=== PATIENT | male | born 1955 | race Caucasian/White ===

== ENCOUNTER 2018-11-20 11:59 | Observation (INO) | payer MEDICARE, OTHER, SELFPAY ==
[2018-11-06 08:52] VITALS: BMI 32.8
[2018-11-19] VITALS (14 sets, daily range): BP systolic 101–164; BP diastolic 64–102; PULSE 84–103; RESP 6–17; TEMP 36–37.2; O2SAT 93–98; BMI 32.8
[2018-11-19] MEDS: LACTATED RINGERS 1,000 ML 42 ML IV (10:07)
--- NOTE | 2018-11-19 10:49 | PM.PREOP ---
Pre-operative Note Interval Note History & Physical reviewed/Exam performed by Physician: Yes Changes to H&P: No
--- NOTE | 2018-11-19 10:50 | P.OP_ITS ---
Operative Date/Time/Diagnoses Date of procedure: 11/19/18 Time of procedure: 15:15 Pre-op diagnosis: Left knee osteoarthritis Post-op diagnosis: same Procedure & Clinicians Procedure: Left total knee replacement Same procedure as scheduled: Yes Indications: The patient has had progressively worsening left knee pain with radiographic changes consistent with arthritis. Non-operative management has failed and the patient has requested total knee replacement. The risks, benefits and alternatives to surgery were discussed with the patient prior to proceeding. Risks discussed included, but were not limited to, failure to relieve pain, stiffness, infection, nerve damage, deep venous thrombosis, pulmonary embolism, stroke, coma, heart attack, permanent paralysis and , as well as the potential need for eventual revision of the prosthetic. Surgeon: Seb Tolentino Search Strategist: Lynn Toussaint Click Yes if Unassisted: No Anesthesia Type: General, Spinal and Local Operative Notes Findings: Severe tricompartmental osteoarthritis Closure Type: primary Specimen(s): none sent Prosthetic devices, grafts, tissues, transplants, or devices: Implants used in this procedure were manufactured by the [employer] (formerly [employer]) and included the BCS II Journey total knee replacement with a size 5 left Oxinium femoral component, a size 6 left non porous tibial base plate, a 9 mm cross- linked polyethylene tibial insert, and a 35 mm oval Tamiko II patellar component. Applied: implant(s) Estimated Blood Loss (mL): 50 Blood products transfused: none Tourniquet time (min): 58 Procedure in detail: The patient was seen in the pre-operative area, where the left knee was identified as the operative site and this was marked with my init ials. The patient received pre-operative antibiotics, and was taken to the operating room and placed on the operative table in the supine position. After satisfactory anesthesia, a multimedia manager out? was performed. The left leg was encircled with a tourniquet about the proximal thigh, and the leg was prepared from the toes to the tourniquet with ChloroPrep in the usual fashion and draped through sterile drapes. The leg was elevated and exsanguinated with Eschmark bandage and the tourniquet inflated to 250 mmHg pressure. The knee was approached through an approximately 18 cm incision centered over the patella and carried into the knee through a medial parapatellar arthrotomy. The anterior osteophytes and soft tissues were removed. The rotational landmarks of Dupage's line and the transepicondylar axis were marked on the femur with electrocautery, and intramedullary guide holes for the femur and tibia were created. The distal femoral cut was made in 6 degrees of valgus using the intramedullary guide at the +2 cut setting due to the patient's flexion contracture. The proximal tibial cut was then made using the intramedullary guide, taking 9 mm of bone off the less involved side. The extension gap was checked and the rotation of the femoral component confirmed with the gap balancing blocks. The anterior, posterior and chamfer cuts were then made. Unfortunately a small anterior cortical notch occurred. The posterior osteophytes and soft tissues were then removed. The posterior capsule was injected with part of a mixture of 60 ml 0.25% Marcaine mixed with 20 ml Exparel and 4 mg of morphine for post-operative pain control. The remainder of this mixture was injected into the capsule and subcutaneous tissues during cement curing. The tibia was prepared with the rotation set by an extra medullary guide. Trial tibial and femoral components were then placed and the intercondylar notch cut through the femoral trial. Range of motion was 0-135 degrees, with good stability throughout the range. The patella was then cut to accommodate the patellar prosthetic. There was no need for a lateral release. The trials were then removed, and the femoral hole plugged with a bone plug. The bone was prepared with pulsatile lavage, and dried with a sponge. Cement was applied and the final prosthetics placed. Excess cement was removed during and after cement curing. After confirming there was no extruded cement posteriorly, the final tibial insert was placed. The knee was copiously irrigated and the tourniquet deflated. Hemostasis was obtained. The capsule was closed with interrupted # 2 polyester sutures. The subcutaneous layer was closed with 3-0 Vicryl, and the skin with a running 3-0 V-Lock suture and SteriStrips. An Aquacel Ag dressing was applied and the patient was taken to recovery having tolerated the procedure well. Complications: none Condition: stable Disposition: PACU Plan for aftercare: The patient will be maintained on a standard total knee replacement protocol with weight bearing as tolerated. The patient will receive aspirin and sequential compression devices for DVT prophylaxis. The patient will be discharged home when safe for the home environment.
[2018-11-19] MEDS: CELECOXIB 200 MG CAPSULE PO (10:55)
[2018-11-19] MEDS: ACETAMINOPHEN 325 MG TABLET 975 MG PO ×2 (10:55→20:21)
[2018-11-19] MEDS: PREGABALIN 75 MG CAPSULE PO (10:56)
--- NOTE | 2018-11-19 12:00 | DI.RAD.S_ITS ---
PROCEDURE: XR KNEE LT 1TO2V INDICATIONS: prosthesis placement TECHNIQUE: No view(s) of the knee acquired. COMPARISON: None. FINDINGS: Bones: Patient is status post knee joint arthroplasty. Hardware components are in expected positions. Visualized bony structures are intact. Soft tissues: Overlying postoperative changes are noted. IMPRESSION: Normal alignment after left total knee arthroplasty. Dictated by: Janusz Miranda M.D. on 11/19/2018 at 16:32 Approved by: Janusz Miranda M.D. on 11/19/2018 at 16:32
[2018-11-19] MEDS: CEFAZOLIN 2 GM/100 ML FROZ.PIGGY IV ×2 (13:25→20:16)
--- NOTE | 2018-11-19 14:02 | SUR.OPER ---
Supine on padded OR bed. Pillow under head, arms secured on padded armboards <90 degree abduction. Safety belt across torso. Non-operative leg secured with tape over blanket over lower leg. Operative leg secured in DeMayo/John positioner.
[2018-11-19] MEDS: BUPIVACAINE 0.25% W/ EPI VIAL 60 ML INJ (14:14)
[2018-11-19] MEDS: BUPIVACAINE LIPOSOME 266 MG/20 ML VIAL INJ (14:15)
[2018-11-19] MEDS: MORPHINE 4 MG/ML INJ INJ (14:15)
[2018-11-19] MEDS: HYDROMORPHONE 2 MG INJ 0.5 MG IV ×2 (15:52→16:12)
[2018-11-19] MEDS: hydrOXYzine 50 MG/ML INJ 25 MG IM (15:57)
[2018-11-19] MEDS: LORazepam 2 MG/ML SYRINGE 0.5 MG IV (16:03)
--- NOTE | 2018-11-19 16:28 | SUR.PHASEI ---
report called to Elzbieta
--- NOTE | 2018-11-19 16:50 | SUR.PHASEI ---
Pt transferred to the floor with o2. Report to LINDA Ruff. VS stable. Lt knee dressing CDI. IV saline locked. Belongings bag with patient.
[2018-11-19] MEDS: LACTATED RINGERS 1,000 ML 125 ML IV (17:07)
--- NOTE | 2018-11-19 17:45 | PC.NURSE ---
Patient up from PACU at 1640, drowsy but wakes easily. States pain is better but does not give a number and then falls back to sleep. On 2L sats low to mid 90s.
[2018-11-19] MEDS: HYDROMORPHONE 0.5 MG INJ IV (20:04)
[2018-11-19] MEDS: OXYCODONE IR 10 MG TABLET PO ×2 (20:18→23:46)
[2018-11-19] MEDS: hydrOXYzine pamoate 25 MG CAPSULE PO (20:19)
[2018-11-19] MEDS: DOCUSATE 100 MG CAPSULE PO (20:21)
[2018-11-19] MEDS: IBUPROFEN 600 MG TABLET PO (20:22)
[2018-11-19] MEDS: METFORMIN HCL 500 MG TABLET 1000 MG PO (20:23)
[2018-11-20] VITALS (8 sets, daily range): BP systolic 101–138; BP diastolic 54–91; PULSE 87–108; RESP 16–18; TEMP 36.6–36.9; O2SAT 94–96
--- NOTE | 2018-11-20 00:30 | PC.NURSE ---
shift supervisor rn Pt was transferred from room 230 to ICU via bed @ 0030.
[2018-11-20] MEDS: LACTATED RINGERS 1,000 ML 125 ML IV (01:13)
[2018-11-20] MEDS: hydrOXYzine pamoate 25 MG CAPSULE PO (03:03)
[2018-11-20] MEDS: OXYCODONE IR 10 MG TABLET PO ×6 (03:03→20:35)
[2018-11-20] MEDS: CEFAZOLIN 2 GM/100 ML FROZ.PIGGY IV (05:09)
[2018-11-20 05:54] LABS: Hematocrit 38.8 % (41-53); Hemoglobin 12.9 g/dL (13.5-17.5)
[2018-11-20] MEDS: OXYCODONE IR 5 MG TABLET PO (06:26)
[2018-11-20] MEDS: POLYETHYLENE GLYCOL 3350 17 GM POWD.PACK PO (06:26)
--- NOTE | 2018-11-20 07:29 | PM.PNPO.1 ---
Subjective Date Patient Seen: 11/20/18 Time Patient Seen: 07:29 Interval history: The patient reports reasonable pain control although he now wishes he would take 10 mg of oxycodone rather than 5. Exam Vital Signs (past 8 hours): - 11/19/18 23:41 11/20/18 06:00 Temperature 99.0 F 98.3 F Pulse Rate 101 H 99 H Respiratory Rate 16 16 Blood Pressure 123/83 101/72 Pulse Oximetry 96 95 Oxygen Delivery Method Nasal Cannula Oxygen Flow Rate 2 Narrative Exam Narrative: Left knee wound is dressed with no significant drainage on the bandage. Calf is soft. Light touch and motion are intact in the left lower extremity. The knee is moderately swollen. Objective Labs Result Diagrams: 11/20/18 05:20 Labs: Laboratory Results - last 24 hr 11/20/18 05:20 Hgb 12.9 L Hct 38.8 L Assessment & Plan Post-op Postoperative Procedures Operation Date: 11/19/18 12:00 Actual Procedures Side Surgeon p Total Knee Arthroplasty Left Seb Tolentino MD Postoperative day: 1 Postoperative status: doing well and anemia Postoperative status narrative: The patient is stable postoperative day 1. He has a mild post hemorrhagic anemia. He scored a 23 on his Roland path algorithm. He lives in [place] where there is currently approximately a foot of snow. Postoperative plan: routine post-op care and ambulate Postoperative plan narrative: We will advance physical therapy today. He did not have a chance to work with therapy yesterday due to over sedation. He may possibly be ready to go home tomorrow. Time Spent With Patient less than 15 minutes Quality VTE Deep Vein Thrombosis/Pulmonary Embolism Present on Admission: No
--- NOTE | 2018-11-20 07:32 | P.PN_ITS ---
Subjective Date Patient Seen: 11/20/18 Time Patient Seen: 07:29 Interval history: The patient reports reasonable pain control although he now wishes he would take 10 mg of oxycodone rather than 5. Exam Vital Signs (past 8 hours): - 11/19/18 23:41 11/20/18 06:00 Temperature 99.0 F 98.3 F Pulse Rate 101 H 99 H Respiratory Rate 16 16 Blood Pressure 123/83 101/72 Pulse Oximetry 96 95 Oxygen Delivery Method Nasal Cannula Oxygen Flow Rate 2 Narrative Exam Narrative: Left knee wound is dressed with no significant drainage on the bandage. Calf is soft. Light touch and motion are intact in the left lower extremity. The knee is moderately swollen. Objective Labs Result Diagrams: 11/20/18 05:20 Labs: Laboratory Results - last 24 hr 11/20/18 05:20 Hgb 12.9 L Hct 38.8 L Assessment & Plan Post-op Postoperative Procedures Operation Date: 11/19/18 12:00 Actual Procedures Side Surgeon p Total Knee Arthroplasty Left Seb Tolentino MD Postoperative day: 1 Postoperative status: doing well and anemia Postoperative status narrative: The patient is stable postoperative day 1. He has a mild post hemorrhagic anemia. He scored a 23 on his Roland path algorithm. He lives in [place] where there is currently approximately a foot of snow. Postoperative plan: routine post-op care and ambulate Postoperative plan narrative: We will advance physical therapy today. He did not have a chance to work with therapy yesterday due to over sedation. He may pos sibly be ready to go home tomorrow. Time Spent With Patient less than 15 minutes Quality VTE Deep Vein Thrombosis/Pulmonary Embolism Present on Admission: No
[2018-11-20] MEDS: IBUPROFEN 600 MG TABLET PO ×3 (08:33→20:33)
[2018-11-20] MEDS: PANTOPRAZOLE 40 MG TABLET PO (08:33)
[2018-11-20] MEDS: DOCUSATE 100 MG CAPSULE PO ×2 (08:33→20:34)
[2018-11-20] MEDS: METFORMIN HCL 500 MG TABLET 1000 MG PO ×2 (08:33→20:34)
[2018-11-20] MEDS: LOSARTAN 50 MG TABLET 100 MG PO (08:34)
[2018-11-20] MEDS: hydroCHLOROthiazide 25 MG TABLET PO (08:34)
[2018-11-20] MEDS: METOPROLOL ER 50 MG TABLET 150 MG PO (08:36)
[2018-11-20] MEDS: ASPIRIN 325 MG TABLET PO (08:37)
[2018-11-20] MEDS: ACETAMINOPHEN 325 MG TABLET 975 MG PO ×3 (08:37→20:34)
[2018-11-20] MEDS: INSULIN ASPART 100 UNIT/ML INSULN PEN SUBCUT ×3 (08:38→17:29)
--- NOTE | 2018-11-20 11:53 | PT.IIE ---
Current Diagnoses Unilateral primary osteoarthritis, left knee (11/19/18) Surgery Performed Operation Date: 11/19/18 12:00 Actual Procedures p Total Knee Arthroplasty(Left) - Seb Tolentino MD Surgical History (Last Updated 11/06/18 @ 10:00 by Catherine Pang, RN) History of operative procedure on lumbosacral spinal structure (Acute ~1979) History of phacoemulsification of cataract of right eye with intraocular lens implantation (Acute) Hx of arthroscopy of left knee (Acute) Hx of arthroscopy of right knee (Acute) Medical History (Last Updated 11/06/18 @ 09:23 by Catherine Pang RN) Arm fracture, left (Acute) CVA (cerebral vascular accident) (Acute ~2012) GERD (gastroesophageal reflux disease) (Acute) HTN (hypertension) (Acute) Hyperlipidemia (Acute) Osteoarthritis (Acute) Type 2 diabetes mellitus (Acute) Physical Therapy Inpatient Evaluation/Re-Eval M1 PT/OT-IP Prior Functional Status Start: 11/20/18 11:44 Freq: NEEDED Status: Active Protocol: Document 11/20/18 11:44 [facility] (Rec: 11/20/18 11:53 [facility] [id number]) Medical Review Prior Functional Status Medical History Reviewed Yes Diet/Fluid Consistency Regular Communication WNL Mobility and Gait Pt amb without AD and was indep with ADLs. Pt reports difficulty and significant pain w/mobility. Social History Household Members none Living Arrangements House Number of Floors (Floors) One Floor Number of Stairs To Enter/Railing? 5 AMIE w/rail Home Environment Standard Height Toilet Walk in Shower Home Equipment Straight Cane Raised Toilet Seat w/Armrests Shower Seat without Backrest Employment Status Retired Additional Social History Comment Friend will be staying with pt for 10 days after surgery and pt will have neighbors help as needed. M2 PT-IP Current Condition Start: 11/20/18 11:44 Freq: NEEDED Status: Active Protocol: Document 11/20/18 11:44 [facility] (Rec: 11/20/18 11:53 [facility] [id number]) Physical Therapy Current Condition Current Condition Evaluation Date 11/20/18 Treatment Diagnosis L TKA Onset Date 11/19/18 Weight Bearing Status Weight Bearing Status Weight Bear as Tolerated M3 PT-IP Subjective Start: 11/20/18 11:44 Freq: NEEDED Status: Active Protocol: Document 11/20/18 11:44 [facility] (Rec: 11/20/18 11:53 [facility] [id number]) Subjective Physical Therapy Visit Type Type Initial Evaluation Visit Start Time 09:45 Visit Stop Time 10:20 Total Visit Minutes 35 Number of REPAIRER CYLINDER HEADS Visits 0 Physical Therapy Visit Comments Patient Comments Pt plans to go home tomorrow. Therapy Pain Assessment Pain When Pain Assessed During Mobility Pain Present Pain Present Pain Reported Location Left Knee Intensity 8 Scale Used Numeric (1 - 10) M4 PT-IP Mobility and Gait Start: 11/20/18 11:44 Freq: NEEDED Status: Active Protocol: Document 11/20/18 11:44 [facility] (Rec: 11/20/18 11:53 [facility] [id number]) PT-Transfer Assessment Sit to and From Stand Sit to and from Stand Contact Guard Assistance Use of Upper Extremities Equipment Transfer Assistive Device Gait Belt Front Wheeled Walker Orthotic/Prosthetic Devices or Brace: No Comments Mobility Comments Pt stood and amb from chair and returned to chair after gait. Gait Assessment Gait Gait Assistance Required: Contact Guard Assist Distance (Feet) 40 Able to Maintain Weight Bearing Status Yes During Gait Assistive Devices Assistive Device Front Wheeled Walker Orthotic/Prosthetic Devices or Brace: No Gait Deviations General Gait Pattern Decreased Stride Length Flexed Trunk Step-to Gait Factors Limiting Gait Function Factors Limiting Gait Function Decreased Strength Limited Range of Motion Pain Comments Gait Comments pt able to amb with cueing for step to pattern and cueing to back up to chair and appropriate use of FWW. PT-Balance Assessment Sitting Balance and Reactions Static Sitting Balance Ability Normal Dynamic Sitting Balance Ability Normal Standing Balance and Reactions Static Standing Balance Ability Fair Dynamic Standing Balance Ability Fair Device Used FWW M5 PT-IP Objective Assessments Start: 11/20/18 11:44 Freq: NEEDED Status: Active Protocol: Document 11/20/18 11:44 [facility] (Rec: 11/20/18 11:53 [facility] [id number]) Orientation Orientation/Cognition Level of Alertness Alert Gross Range of Motion Lower Extremity ROM Assessment Left Impaired Strength Lower Extremity Strength Assessment Left Impaired M6 PT-IP Treatment Start: 11/20/18 11:44 Freq: NEEDED Status: Active Protocol: Document 11/20/18 11:44 [facility] (Rec: 11/20/18 11:53 [facility] [id number]) Physical Therapy Treatment Education Education Provided Precautions Weight Bearing Status Post-Op Packet Safety Other Treatments Other Treatment Performed Edu on needing a higher walker M7 PT-IP Assessment and Plan Start: 11/20/18 11:44 Freq: NEEDED Status: Active Protocol: Document 11/20/18 11:44 [facility] (Rec: 11/20/18 11:53 [facility] [id number]) PT Summary Assessment and Plan Potential Rehabilitation Potential Excellent Status of Condition at Evaluation Evolving Summary Impairments Pain ROM Strength Balance Transfers Gait Assessment Summary Pt is doing well day 1 s/p L TKA with inc pain that is limiting his mobility. He is motivated and cooperative with therapy and would benefit from cont skilled PT to progress his mobility to be able to return home. Goals Bed Mobility Goal Independent Transfer Goal Independent Gait Goal Independent Gait Distance 150 Other Goals up/down 5 steps SBA with 1 rail Days to Meet Goals 3 Frequency of Treatment Frequency Of Treatment Twice a Day Treatment Plan Physical Therapy Treatment Plan Bed Mobility Training Transfer Training Gait Training Therapeutic Exercise Balance Retraining Post Op Education Hot or Cold Pack Neuromuscular Re-ed Recommendations To Nursing Amount of Assist Needed 1 Person Assist Discharge Recommendations PT Discharge Recommendations Home with Assistance Outpatient PT Equipment Needed for Home Before FWW of appropriate size Discharge
--- NOTE | 2018-11-20 14:12 | PT.IPTN ---
Current Diagnoses Unilateral primary osteoarthritis, left knee (11/19/18) Surgery Performed Operation Date: 11/19/18 12:00 Actual Procedures p Total Knee Arthroplasty(Left) - Seb Tolentino MD Physical Therapy Treatment Note M2 PT-IP Current Condition Start: 11/20/18 11:44 Freq: NEEDED Status: Active Protocol: Document 11/20/18 11:44 [facility] (Rec: 11/20/18 11:53 [facility] [id number]) Physical Therapy Current Condition Current Condition Evaluation Date 11/20/18 Treatment Diagnosis L TKA Onset Date 11/19/18 Weight Bearing Status Weight Bearing Status Weight Bear as Tolerated M3 PT-IP Subjective Start: 11/20/18 11:44 Freq: NEEDED Status: Active Protocol: Document 11/20/18 14:03 [facility] (Rec: 11/20/18 14:12 [facility] [id number]) Subjective Physical Therapy Visit Type Type Treatment Note Visit Start Time 13:00 Visit Stop Time 13:55 Total Visit Minutes 55 Number of THRESHING DEPARTMENT SUPERVISOR Visits 0 Physical Therapy Visit Comments Patient Comments Pt reports he wants to get walking again. Therapy Pain Assessment Pain When Pain Assessed During Mobility Pain Present Pain Present Pain Reported M4 PT-IP Mobility and Gait Start: 11/20/18 11:44 Freq: NEEDED Status: Active Protocol: Document 11/20/18 14:03 [facility] (Rec: 11/20/18 14:12 [facility] [id number]) PT-Bed Mobility Assessment Sit to Supine Sit to Supine Standby Assistance Scooting Scooting to Edge of Bed Independent Scooting Up and Down in Bed Independent PT-Transfer Assessment Sit to and From Stand Sit to and from Stand Contact Guard Assistance Equipment Transfer Assistive Device Gait Belt Front Wheeled Walker Orthotic/Prosthetic Devices or Brace: No Comments Mobility Comments Pt stood and amb from recliner then stood from w/c 2x CGA to amb. Gait Assessment Gait Gait Assistance Required: Contact Guard Assist Distance (Feet) 180 Able to Maintain Weight Bearing Status Yes During Gait Assistive Devices Assistive Device Gait Belt Front Wheeled Walker Orthotic/Prosthetic Devices or Brace: No Gait Deviations General Gait Pattern Decreased Stride Length Flexed Trunk Step-to Gait Factors Limiting Gait Function Factors Limiting Gait Function Decreased Strength Limited Range of Motion Pain Comments Gait Comments Pt was able to take larger steps this PM with dec cueing for sequence. He amb with FWW about 30ft then voided w/ urinal SBA. he then amb about 140ft SBA and when returned to room by w/c amb 10ft back to bed. Stair Climbing Assessment Evaluation Level of Assist On Stairs Contact Guard Assistance Devices Stair Climbing Assistive Devices Left Railing Right Railing Technique/Endurance Stair Climbing Direction Ascend and Descend Stair Climbing Technique Step to Step Number of Steps Climbed 3 Query Text: M5 PT-IP Objective Assessments Start: 11/20/18 11:44 Freq: NEEDED Status: Active Protocol: Document 11/20/18 11:44 [facility] (Rec: 11/20/18 11:53 [facility] [id number]) Orientation Orientation/Cognition Level of Alertness Alert Gross Range of Motion Lower Extremity ROM Assessment Left Impaired Strength Lower Extremity Strength Assessment Left Impaired M6 PT-IP Treatment Start: 11/20/18 11:44 Freq: NEEDED Status: Active Protocol: Document 11/20/18 14:03 [facility] (Rec: 11/20/18 14:12 [facility] [id number]) Physical Therapy Treatment Exercises Exercises Seated Knee Flexion/Extension Education Education Provided Weight Bearing Status M7 PT-IP Assessment and Plan Start: 11/20/18 11:44 Freq: NEEDED Status: Active Protocol: Document 11/20/18 14:03 [facility] (Rec: 11/20/18 14:12 [facility] [id number]) PT Summary Assessment and Plan Summary Progress Towards Goals Progressing Toward Goals Assessment Summary Pt did better with ambulation this afternoon with improved WB into LLE. He cont to be unable to do a step to pattern . Goals Bed Mobility Goal Independent Transfer Goal Independent Gait Goal Independent Gait Distance 150 Other Goals up/down 5 steps SBA with 1 rail Days to Meet Goals 3 Frequency of Treatment Frequency Of Treatment Twice a Day Treatment Plan Physical Therapy Treatment Plan Bed Mobility Training Transfer Training Gait Training Therapeutic Exercise Balance Retraining Post Op Education Hot or Cold Pack Neuromuscular Re-ed Recommendations To Nursing Amount of Assist Needed 1 Person Assist Discharge Recommendations PT Discharge Recommendations Home with Assistance Outpatient PT
[2018-11-20] MEDS: ATORVASTATIN 20 MG TABLET 40 MG PO (17:30)
--- NOTE | 2018-11-20 22:31 | PC.NURSE ---
pt rested in bed this shift. up to dangle in bed while eating dinner. pt has been calm and cooperative.
[2018-11-21] MEDS: OXYCODONE IR 10 MG TABLET PO ×3 (00:05→10:28)
--- NOTE | 2018-11-21 00:29 | PC.NURSE ---
Addendum entered by Rick Tobar R.N. 11/21/18 02:55: 0215: Pt awake, found out of bed without walker. Assisted back to bed. Pt states he woke up and thought he was at home. Original Note: Driver Starting Gate Note: 0005: Awake, resting in bed. Lt knee elevated on pillow with heel floated. IV found out: bandaid to site. Vital signs stable. Dressing to lt knee cdi, with ambrose wrap intact over dressing.Medicated for pain with Oxycodone 10mg po.
[2018-11-21 06:00] VITALS: BP 120/70; PULSE 88; RESP 18; TEMP 36.9; O2SAT 95
--- NOTE | 2018-11-21 07:03 | PM.DS.1 ---
History of Present Illness Date Patient Seen: 11/21/18 Time Patient Seen: 07:04 Chief complaint: Total Knee Arthroplasty/left knee Narrative: The history and physical examination are contained in the chart previously completed note. Please refer to that note for this information. Discharge Providers Date of admission: 11/19/18 09:17 Consults: 11/19/18 16:45 Consult to Discharge Planning Routine Comment: Consult to Physical Therapy Evaluate & Treat Comment: Physician Instructions: postop TKA protocol 11/19/18 17:41 Consult to Installation Manager Routine Comment: Discharge provider: Seb Tolentino MD Discharge Date: 11/21/18 Summary Discharge Diagnosis: 1. Osteoarthritis, left knee 2. Mild acute post hemorrhagic anemia Hospital Course: The patient was admitted to the hospital and taken directly to the operating room on November 19 2018. He tolerated the procedure well. He made good progress with physical therapy and was ready for discharge on postoperative day 2. Status at Discharge Cognitive/behavioral status at discharge: Baseline Functional status at discharge: uses cane/walker Overall status at discharge: patient is progressing back to baseline Time Spent with Patient Less than 30 minutes Exam Vital Signs (past 8 hours): - 11/21/18 06:00 Temperature 98.5 F Pulse Rate 88 Respiratory Rate 18 Blood Pressure 120/70 Pulse Oximetry 95 Oxygen Delivery Method Nasal Cannula Oxygen Flow Rate 0 Narrative Exam Narrative: Left knee wound is dressed with no drainage on the bandage. Calf is soft. Light touch and motion are intact in the left lower extremity. Objective Labs Result Diagrams: 11/20/18 05:20 Discharge Plan Discharge Plan Patient Disposition: Home Discharge Med Rec/Prescriptions Prescriptions: New oxycodone 5 mg Tablet 5 mg PO Q3HR PRN (Reason: Pain, Moderate (4-6)) Qty: 60 RF: 0 hydroxyzine pamoate 25 mg Capsule 25 mg PO Q6HR PRN (Reason: Nausea) Qty: 40 RF: 0 Continued atorvastatin 40 mg Tablet 40 mg PO QPM RF: 0 metformin 500 mg Tablet 1,000 mg PO BID RF: 0 aspirin 325 mg Tablet 325 mg PO DAILY RF: 0 metoprolol succinate 100 mg Tablet Extended Release 24 Hr 150 mg PO SEEINSTR RF: 0 omeprazole 40 mg Capsule,Delayed Release(Dr/Ec) 40 mg PO DAILY RF: 0 losartan-hydrochlorothiazide 100-25 mg Tablet 1 tab PO DAILY RF: 0 glipizide 2.5 mg Tablet Extended Release 24hr 2.5 mg PO BID RF: 0 ibuprofen [Advil] 200 mg Tablet 600 mg PO TID RF: 0 Follow up/Referrals: Seb Tolentino MD [Physician] - 3-5 Days Provider Discharge Instructions Diet: Diet as Tolerated and Carb-consistent/Diabetic Activity: You may bear weight as tolerated on your left leg. Cold/Heat Therapy: Apply ice for 15 min every hour as needed to the left knee. Skin/Wound/Dressing Care Report to your healthcare provider any signs of infection, such as:: chills, fever, night sweats, increased pain, unusual drainage and unusual redness Dressing: Leave the Damien wrap on until 3 days after surgery. You may then remove the Damien wrap and shower normally. Leave the deeper dressing in place. If the central strip of the deeper dressing becomes saturated with either water or blood please call the office to have it evaluated. Visit Report/Discharge Packet Instructions: DI for Knee Replacement Stand Alone Forms: Surgery Discharge Discharge Data Attending Provider: Seb Tolentino Admit Date/Time: 11/19/18 09:17 Quality VTE Deep Vein Thrombosis/Pulmonary Embolism Present on Admission: No
[2018-11-21 08:00] VITALS: BP 114/65; PULSE 91; RESP 17; TEMP 36.7; O2SAT 94
[2018-11-21] MEDS: ACETAMINOPHEN 325 MG TABLET 975 MG PO (09:04)
[2018-11-21] MEDS: DOCUSATE 100 MG CAPSULE PO (09:05)
[2018-11-21] MEDS: ASPIRIN 325 MG TABLET PO (09:05)
[2018-11-21] MEDS: IBUPROFEN 600 MG TABLET PO (09:05)
[2018-11-21] MEDS: LOSARTAN 50 MG TABLET 100 MG PO (09:05)
[2018-11-21] MEDS: hydroCHLOROthiazide 25 MG TABLET PO (09:05)
[2018-11-21] MEDS: METFORMIN HCL 500 MG TABLET 1000 MG PO (09:06)
[2018-11-21] MEDS: PANTOPRAZOLE 40 MG TABLET PO (09:06)
[2018-11-21] MEDS: POLYETHYLENE GLYCOL 3350 17 GM POWD.PACK PO (09:06)
[2018-11-21] MEDS: METOPROLOL ER 50 MG TABLET 150 MG PO (09:06)
--- NOTE | 2018-11-21 12:33 | PT.IPTN ---
Current Diagnoses Unilateral primary osteoarthritis, left knee (11/19/18) Surgery Performed Operation Date: 11/19/18 12:00 Actual Procedures p Total Knee Arthroplasty(Left) - Seb Tolentino MD Physical Therapy Treatment Note M2 PT-IP Current Condition Start: 11/20/18 11:44 Freq: NEEDED Status: Active Protocol: Document 11/20/18 11:44 [facility] (Rec: 11/20/18 11:53 [email or web address]) Physical Therapy Current Condition Current Condition Evaluation Date 11/20/18 Treatment Diagnosis L TKA Onset Date 11/19/18 Weight Bearing Status Weight Bearing Status Weight Bear as Tolerated M3 PT-IP Subjective Start: 11/20/18 11:44 Freq: NEEDED Status: Active Protocol: Document 11/21/18 12:24 [facility] (Rec: 11/21/18 12:33 [facility] [email or web address]) Subjective Physical Therapy Visit Type Type Treatment Note Visit Start Time 09:50 Visit Stop Time 10:21 Total Visit Minutes 31 Number of ADMINISTRATIVE ASSISTANT RECEPTIONIST Visits 1 Physical Therapy Visit Comments Patient Comments Pt in bed and agreeable to PT. Patient Goals To d/c home. Therapy Pain Assessment Pain When Pain Assessed During Mobility Pain Present Pain Present Pain Reported Location Left Knee Intensity 6 Scale Used Numeric (1 - 10) Pain Management Techniques Apply Cold Modification of Treatment Re-positioning Timing of Activity with Medications M4 PT-IP Mobility and Gait Start: 11/20/18 11:44 Freq: NEEDED Status: Active Protocol: Document 11/21/18 12:24 SA (Rec: 11/21/18 12:33 [email or web address]) PT-Bed Mobility Assessment Rolling Type of Rolling Roll to Left Supine to Sit Supine to Sit Standby Assistance Sit to Supine Sit to Supine Standby Assistance Scooting Scooting to Edge of Bed Independent Scooting Up and Down in Bed Independent PT-Transfer Assessment Sit to and From Stand Sit to and from Stand Contact Guard Assistance Use of Upper Extremities Equipment Transfer Assistive Device Gait Belt Front Wheeled Walker Orthotic/Prosthetic Devices or Brace: No Transfers Transfer Destination Bed Transfer Technique Stand Step Pivot Transfer Ability Level of Assist Contact Guard Assistance Comments Mobility Comments Pt SBA-CGA with bed mobility and transfers using FWW. Cues for increasing WBing through LLE and for uprigh tposture during standing. Pt able to stand at toilet to urinate with no LOB. Gait Assessment Gait Gait Assistance Required: Contact Guard Assist Distance (Feet) 180 Able to Maintain Weight Bearing Status Yes During Gait Assistive Devices Assistive Device Gait Belt Front Wheeled Walker Orthotic/Prosthetic Devices or Brace: No Gait Deviations General Gait Pattern Decreased Stride Length Flexed Trunk Step-to Gait Factors Limiting Gait Function Factors Limiting Gait Function Decreased Strength Limited Range of Motion Pain Comments Gait Comments Pt able to correct out of step to gait pattern and increase step length with step through gait pattern. Cues for uprigh t posture. Stair Climbing Assessment Evaluation Level of Assist On Stairs Contact Guard Assistance Devices Stair Climbing Assistive Devices Left Railing Right Railing Technique/Endurance Stair Climbing Direction Ascend and Descend Stair Climbing Technique Step to Step Number of Steps Climbed 3 Query Text: Stair Climbing Set # Repetitions (reps) 1 M5 PT-IP Objective Assessments Start: 11/20/18 11:44 Freq: NEEDED Status: Active Protocol: Document 11/20/18 11:44 [facility] (Rec: 11/20/18 11:53 [facility] [id number]) Orientation Orientation/Cognition Level of Alertness Alert Gross Range of Motion Lower Extremity ROM Assessment Left Impaired Strength Lower Extremity Strength Assessment Left Impaired M6 PT-IP Treatment Start: 11/20/18 11:44 Freq: NEEDED Status: Active Protocol: Document 11/21/18 12:24 (Rec: 11/21/18 12:33 [email or web address]) Physical Therapy Treatment Exercises Exercises Ankle Pumps Quad Sets Heel Slides Seated Knee Flexion/Extension Education Education Provided Weight Bearing Status Other Treatments Other Treatment Performed Pt with taller FWW. M7 PT-IP Assessment and Plan Start: 11/20/18 11:44 Freq: NEEDED Status: Active Protocol: Document 11/21/18 12:24 [facility] (Rec: 11/21/18 12:33 [email or web address]) PT Summary Assessment and Plan Summary Progress Towards Goals Progressing Toward Goals Assessment Summary Pt improving with mobility and gait, to d/c this afternoon and has OP PT set up for tomorrow. Safe with gait and stairs. Frequency of Treatment Frequency Of Treatment Twice a Day Recommendations To Nursing Amount of Assist Needed 1 Person Assist Discharge Recommendations PT Discharge Recommendations Home with Assistance Outpatient PT
--- NOTE | 2018-11-21 12:34 | PC.NURSE ---
Patient escorted out via wheelchair to go home with friends. Patient has follow up appoitnments and outpatient PT scheduled already. Aquacel with ambrose wrap intact. Patient reports he has prescriptions at home already. Patient states understanding of instructions and has no further questions or concerns at this time.
== END 2018-11-21 12:37 | disposition home or self-care (01) ==
LOC: AC 11-21 07:03 → OR 11-21 12:44 → AC 11-21 12:46 → OR 11-21 12:47
PROVIDERS: Admitting Provider Orthopaedic Surgery; Visit Provider Orthopaedic Surgery
PROC: 0SRD0JZ Replacement of Left Knee Joint with Synthetic Substitute, Open Approach (ICD-10-PCS; CPT 27447; principal; 2018-11-19 12:00)
DX: M17.12 Unilateral primary osteoarthritis, left knee (principal); D50.0 Iron deficiency anemia secondary to blood loss (chronic); I10 Essential (primary) hypertension; E78.5 Hyperlipidemia, unspecified; E11.9 Type 2 diabetes mellitus without complications; Z79.84 Long term (current) use of oral hypoglycemic drugs
CPT/HCPCS: 27447; 36415; 73560; 82962; 85014; 85018; 97116; 97162; 97530; C1776; G0378; C9290; J0360; J0690; J1170; J2060; J2250; J2270; J2405; J2704; J3010; J3410

== ENCOUNTER → 2024-06-24 13:18 | Outpatient (CLI) | payer MEDICARE, OTHER, SELFPAY ==
[2018-11-19 17:12] VITALS: BMI 32.8
--- NOTE | 2024-06-24 13:34 | EKG_ITS ---
[address] [address] Test Date: 2024-06-24 Pat Name: Merrick Marks Department: [facility] Room: Gender: Male It Program Auditor: ILYA : 1955 Requested By: Order Number: [id number] Reading MD: Alfredito eLrma Measurements Intervals [place] Rate: 79 P: 63 OK: 186 QRS: 5 QRSD: 96 T: 50 QT: 366 QTc: 419 Interpretive Statements Normal sinus rhythm Electronically Signed On 06-27-2024 19:47:27 PDT by Alfredito Lerma
== END ==
PROVIDERS: PCP Internal Medicine; Referring Provider Orthopaedic Surgery; Visit Provider Orthopaedic Surgery
DX: Z01.818 Encounter for other preprocedural examination (principal)
CPT/HCPCS: 93005

== ENCOUNTER 2024-08-29 10:57 | Day surgery (SDC) | payer MEDICARE, OTHER, SELFPAY ==
[2018-11-19 17:12] VITALS: BMI 32.8
[2024-08-20 07:51] VITALS: BMI 30.6
[2024-08-29] VITALS (10 sets, daily range): BP systolic 109–137; BP diastolic 67–99; PULSE 74–97; RESP 12–20; TEMP 36.2–36.3; O2SAT 91–98; BMI 29.9
[2024-08-29] MEDS: ACETAMINOPHEN 325 MG TABLET 975 MG PO (12:35)
[2024-08-29] MEDS: LACTATED RINGERS 1,000 ML 42 ML IV (12:36)
--- NOTE | 2024-08-29 13:17 | SUR.OPER ---
Beach chair with Maquet shoulder positioner. Lower body on padded OR bed. Head in foam padded head cradle, secured with straps. Non-operative arm secured <90 degrees abduction. Pillow under knees. Safety belt at thigh. Cloth tape over blanket over lower legs.
--- NOTE | 2024-08-29 13:43 | SUR.PREOP ---
Block start time [1331] . Monitoring initiated and maintained throughout procedure. Oxygen and medications given per anesthesiologist instructions. Patient remained stable throughout procedure, no adverse reactions noted. Block end time [1336].
--- NOTE | 2024-08-29 13:47 | SUR.PREOP ---
Time out performed at 1330 with Salome Lema OPERATIONS ADMINISTRATIVE ASSISTANT and self.
[2024-08-29] MEDS: CEFAZOLIN 2 GM/100 ML PREMIX 100 ML IV (13:55)
[2024-08-29] MEDS: TRANEXAMIC ACID 1,000 MG VIAL 1000 MG INJ (14:09)
[2024-08-29] MEDS: BUPIVACAINE 0.25% (PF) 30 ML, EPINEPHrine 0.15 MG INJ (14:09)
--- NOTE | 2024-08-29 15:40 | P.OP_ITS ---
Operative Date/Time/Diagnoses Date of procedure: 08/29/24 Time of procedure: 15:40 Pre-op diagnosis: Right glenohumeral arthritis Post-op diagnosis: same Procedure & Clinicians Procedure: Right reverse total shoulder arthroplasty Same procedure as scheduled: Yes Indications: Indications: This is a 69-year-old male who has glenohumeral arthritis. Symptoms have been present for years, insidious onset. Patient has failed a reasonable attempt at conservative therapy. After extensive discussion in clinic, they wished to go forward with surgery. Risks and benefits were described including the risk of infection, bleeding, damage to internal structures including nerves. We also discussed the risk of failure of surgery and the need for revision surgery as well as the risk of anesthesia. The patient expressed understanding with these risks and wished to go forward with surgery. Surgeon: Kalia Orlando Risk And Insurance Consultant: Aurea Farley Click Yes if Unassisted: Yes Anesthesia Type: General Operative Notes Findings: Findings: Osteoarthritis of the glenoid and humeral head as well as a defient rotator cuff as noted on preoperative imaging and under direct visualization Closure Type: primary Specimen(s): none sent Prosthetic devices, grafts, tissues, transplants, or devices: Tornier implants Base plate: 29 mm, full wedge Glenosphere: 39 mm Stem: Perform 4 Poly: +6, 10 degree, 55% coverage Estimated Blood Loss (mL): 200 Blood products transfused: none Procedure in detail: Patient was seen in the preoperative holding unit. The correct right shoulder was identified and marked with my initials. Again we discussed the risks and benefits of surgery and they wished to go forward with surgery. The patient was brought back to the operating room and placed supine on the operating table. Smooth endotracheal intubation was performed by anesthesia. All prominences were padded and they were placed into the beach chair position. Intravenous antibiotics were given. The right shoulder was then prepped with the standard sterile preparation and draping. A time-out was then performed in my initials were again identified on the correct shoulder. 1 g of IV tranexamic acid was given. A standard deltopectoral incision was made. Skin flaps were made. The cephalic vein was identified and retracted laterally. This was protected throughout the remainder of the case. Sharp dissection was made along the deltoid, subacromial and subcoracoid space to release adhesions. The conjoined tendon was identified and the axillary nerve was palpated and continuous using the tug test. It was protected throughout the remainder of the case. A brown retractor was placed underneath the deltoid muscle and a darach retractor underneath the conjoint tendon. The subscapularis muscle was ntoed to be intact. The anterior circumflex artery and associated veins on the lower border of the subscapularis were identified and tied off using 0-Vicryl. The biceps tendon was identified in the bicipital groove. This was released from its sheath, and taken from its origin on the glenoid and tied into the pectoralis tendon for a solid tenodesis. We then began a subscapularis peel. The subscapularis was tagged with an Ethibond suture. A 360 degree circumferential release of the subscapularis was performed with protection of the axillary nerve. The coracohumeral ligament was released at the base of the coracoid. The shoulder was then dislocated. Osteophytes were removed using combination of rongeur and osteotome. The rotator cuff was noted to be insufficient. An intramedullary guide was used set at version of 20?. Using an oscillating saw a conservative humeral head cut was made. Impaction reamers were reamed up to a size 4 stem with a built-in angle 135?. A neck protector was placed. Attention was then turned to the glenoid. After retracting the humeral head posteriorly a circumferential release was performed of the capsule with protection of the axillary nerve. The labrum was then released starting at the biceps anchor and going around the rim a small amount of triceps was released from the inferior glenoid. A center guide pin was then placed using the guide, followed by Reamer. After adequate cartilage was removed the boss was reamed and the centeral hole was drilled and measured. The base plate was then implanted and screwed into place. The peripheral screws were then sequentially drilled, measured, and placed. A 39 glenosphere was then selected and screwed into place onto the base plate. Turning back to the humerus, the humeral head was delivered and trialed with a +6, 10 degree, 55% coverage polyethylene. The arm was taken through range of motion and this was felt to be stable. The trial was then removed and a dilute Betadine wash was then performed with 1 L of sterile saline. Before placing the final implant, drill holes were made in the bicipital groove for the subscapularis repair, and sutures were passed through the drill holes. The final stem was then impacted into the humerus. The shoulder was then reduced and again brought through range of motion and was felt to be stable. The subscapularis was then repaired using a modified racking hitch with nice loupes. The skin was closed with 2-0 vicryl and 3-0 Monocryl followed by Aquacel dressing. Patient was awoken from anesthesia and brought back to the postoperative recovery unit without issue. They were placed into a sling. Assisting participation: This operation could not have been safely performed (without compromising the technical results or length of the procedure) without the assistance of a skilled surgical elastic knitter hand frame. The surgical elastic knitter hand frame was medically necessary for proper positioning, retraction and manipulation of instruments, proper exposure, graft prep, and manipulation of tissue. Complications: none Post-operative Condition: stable Disposition: PACU Plan for aftercare: Postoperative instructions: Sling to remain on for 6 weeks. No external rotation past neutral for 6 weeks. Okay for the sling to come off for shower. Okay to shower over the Aquacel dressing. If any water gets underneath the dressing, remove the dressing. First postoperative visit in 2 weeks.
[2024-08-29] MEDS: OXYCODONE IR 5 MG TABLET PO (16:17)
== END 2024-08-29 17:10 | disposition home or self-care (01) ==
PROVIDERS: PCP Internal Medicine; Referring Provider Orthopaedic Surgery; Visit Provider Orthopaedic Surgery
PROC: (CPT 23472; principal; 2024-08-29 13:45)
DX: M19.011 Primary osteoarthritis, right shoulder (principal); G89.18 Other acute postprocedural pain; M25.711 Osteophyte, right shoulder
CPT/HCPCS: 23472; 64415; C1776; J0171; J0690; J1100; J1885; J2405; J2704; J3010